=== PATIENT | male | born 1950 | race Caucasian/White ===

== ENCOUNTER 2018-08-23 06:33 | Day surgery (SDC) | payer OTHER, BC ==
[~2018-08-23] VITALS: Ht 180.3 cm; Wt 86.6 kg
[2018-08-23 07:09] VITALS: BP 138/79
[2018-08-23 11:10] VITALS: BP 127/66
== END 2018-08-23 09:45 | disposition home or self-care (01) ==
LOC: DS 06:33 → OR 08:00 → GI 08:00 → DS 09:45
DX: Z12.11 Encounter for screening for malignant neoplasm of colon (principal); D12.5 Benign neoplasm of sigmoid colon; D12.8 Benign neoplasm of rectum; K57.30 Diverticulosis of large intestine without perforation or abscess without bleeding; I10 Essential (primary) hypertension; F17.210 Nicotine dependence, cigarettes, uncomplicated; Z79.899 Other long term (current) drug therapy; Z98.890 Other specified postprocedural states; Z80.0 Family history of malignant neoplasm of digestive organs
CPT/HCPCS: 45378; J1200; J1610; J2250; J2310; J3010; J3490